=== PATIENT | female | born 1935 | race Caucasian/White ===

== ENCOUNTER 2017-03-31 13:44 | Emergency (ER) | payer MEDICARE, BC ==
[~2017-03-31] VITALS: Ht 162.6 cm; Wt 65.9 kg
[~2017-03-31 13:44] MED LIST: CALC600T25 PO; LEVO75TA3 PO; LOSA50TA PO; OMEP40CA2 PO; VITA100064 PO
[2017-03-31 13:57] VITALS: BP 143/68; PULSE 71; RESP 16; TEMP 98.3; O2SAT 98
[2017-03-31 14:21] LABS: BLOOD, URINE NEG (NEG); GLUCOSE,URINE NEG (NEG); KETONE, URINE NEG (NEG); NITRITE,URINE NEG (NEG)
[2017-03-31] MEDS ORDERED: SODIUM CHLOR 0.9% 1000 ML INJ 1,000 ML IV ONE (14:25)
[2017-03-31 14:30] VITALS: BP 141/79; PULSE 66; RESP 16; O2SAT 96; O2SAT 97
[2017-03-31 14:30] LABS: COMMENT (UR) CULT NOT INDICATED; CULTURE IF INDICATED CULT NOT INDICATED; METHOD OF COLLECTION CLEAN CATCH; SQUAMOUS EPITHELIAL CELL URINE 0-5 /hpf (0-5); URINE COLOR STRAW (YELLW/STRAW)
[2017-03-31] MEDS ORDERED: SODIUM CHLORIDE 0.9% FLUSH 10 ML FLUSH IVF PRN (14:30)
[2017-03-31] MEDS ORDERED: ONDANSETRON HCL 4 MG/2 ML VIAL IVP ONE (14:30)
--- NOTE | 2017-03-31 14:32 | PD ---
HPI Chief Complaint: General Weakness Time Seen by Provider: 14:12 Travel History International Travel<30 days: No Contact w/Intl Traveler<30days: No Traveled to known affect area: No History of Present Illness HPI The patient is a 81-year-old female who presents emergency department for multiple complaints. The patient states she was not feeling well approximately one week ago when she had outpatient laboratory evaluation including UA performed by her primary physician, Dr. Anthony. The patient states she called her primary physician back was diagnosed with UTI, took Cipro for infection, finished the Cipro yesterday. The patient states she never had any dysuria, frequency, or urgency. She did complain of some generalized malaise, abdominal bloating, but denied any urinary symptoms. The patient states she still has the same symptoms, states she feels slightly bloated after eating, as well as generalized malaise. She also complains of numbness and tingling to the toes as well as to the lips bilaterally. The patient does have a history of hyperlipidemia and hypertension, denies any acute changes in her medications except for recent addition of Cipro for limited duration. Patient denies any current chest pain or shortness of breath. The patient was able to eat eggplant last night and was able to eat toast and coffee this morning with mild bloating but no vomiting or diarrhea. The patient's last bowel movement was this morning, described as normal per her report. 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 PROB.) Thyroid Disease: Yes Tetanus Vaccination: < 5 Years Influenza Vaccination: Yes ?: Not Menopausal: Yes Past Surgical History Genitourinary Surgery: Yes (pouch in esophagus repaired february) Oral Surgery: Yes (T & A) Pacemaker: No Thoracic Surgery: Yes (esphageal dilitation,pouch taken out of bottom of esophgus and hernia repai) Tonsillectomy: Yes Other Surgery: Yes (ESOPHAGEAL/LEFT RIB SX) Social History Alcohol Use: Yes (occ wine) Tobacco Use: No (quit 40-50 yrs cigs) Substance Use: No Allergies-Medications (Allergen,Severity, Reaction): Coded Allergies: Talwin (Unverified Allergy, Severe, CONFUSION, 03/31/17) Sulfa (Verified Allergy, Mild, 03/31/17) Benadryl (Verified Allergy, Unknown, Rash, 03/31/17) Reported Meds & Prescriptions Reported Meds & Active Scripts Active Reported Vitamin D (Cholecalciferol) 1,000 Unit Tab 1,000 Units PO DAILY Calcium (Calcium Carbonate) 600 Mg Tab 1 Tab PO BID Omeprazole 40 Mg Cap 40 Mg PO DAILY Losartan (Losartan Potassium) 50 Mg Tab 50 Mg PO DAILY Levothyroxine (Levothyroxine Sodium) 75 Mcg Tab 75 Mcg PO DAILY Review of Systems Except as stated in HPI: all other systems reviewed are Neg General / Constitutional: No: Fever HENT: No: Lightheadedness Respiratory: No: Shortness of Breath Gastrointestinal: No: Nausea, Vomiting, Abdominal Pain Genitourinary: No: Urgency, Frequency, Dysuria Musculoskeletal: Positive: Weakness, No: Edema Neurologic: Positive: Paresthesia, Sensory Disturbance, No: Change in Mentation Physical Exam Narrative GENERAL: Awake, alert, pleasant 81-year-old female who appears her stated age and is in no acute respiratory distress. SKIN: Focused skin assessment warm/dry. HEAD: Atraumatic. Normocephalic. EYES: No injection or drainage. ENT: No nasal bleeding or discharge. Saw dry mucous members. NECK: Trachea midline. No JVD. CARDIOVASCULAR: Regular rate and rhythm. No murmur appreciated. RESPIRATORY: No accessory muscle use. Clear to auscultation. Breath sounds equal bilaterally. GASTROINTESTINAL: Abdomen soft, non-tender, nondistended. No rebound tenderness. No suprapubic tenderness. MUSCULOSKELETAL: No obvious deformities. No clubbing. No cyanosis. No edema. NEUROLOGICAL: Awake and alert. No obvious cranial nerve deficits. Motor grossly within normal limits. Normal speech. Nonfocal. Oriented 4. Follows commands without difficult. PSYCHIATRIC: Appropriate mood and affect; insight and judgment normal. Data Data Last Documented VS Vital Signs Date Time Temp Pulse Resp B/P Pulse Ox O2 Delivery O2 Flow Rate FiO2 03/31/17 15:09 62 16 124/59 66 16 141/79 71 16 119/73 03/31/17 14:30 98 Room Air 03/31/17 13:57 98.3 Orders Urinalysis - C+S If Indicated (03/31/17 14:01) Complete Blood Count With Diff (03/31/17 14:25) Comprehensive Metabolic Panel (03/31/17 14:25) Magnesium (Mg) (03/31/17 14:25) Ckmb (Isoenzyme) Profile (03/31/17 14:25) Troponin I (03/31/17 14:25) Ecg Monitoring (03/31/17 14:25) Iv Access Insert/Monitor (03/31/17 14:25) Oximetry (03/31/17 14:25) Ondansetron Inj (Zofran Inj) (03/31/17 14:30) Sodium Chloride 0.9% Flush (Ns Flush) (03/31/17 14:30) Sodium Chlor 0.9% 1000 Ml Inj (Ns 1000 M (03/31/17 14:25) Orthostatic Vital Signs (03/31/17 14:25) Labs Laboratory Tests Test 03/31/17 03/31/17 14:05 14:48 Urine Collection Type CLEAN CATCH Urine Color STRAW Urine Turbidity CLEAR Urine pH 6.0 Urine Specific Sawyer 1.003 Urine Protein NEG mg/dL Urine Glucose (UA) NEG mg/dL Urine Ketones NEG mg/dL Urine Occult Blood NEG Urine Nitrite NEG Urine Bilirubin NEG Urine Leukocyte Esterase NEG Urine Squamous Epithelial 0-5 /hpf Cells Microscopic Urinalysis Comment CULT NOT INDICATED Urine Collection Time 1405 White Blood Count 6.5 TH/MM3 Red Blood Count 4.47 MIL/MM3 Hemoglobin 13.1 GM/DL Hematocrit 40.5 % Mean Corpuscular Volume 90.6 FL Mean Corpuscular Hemoglobin 29.3 PG Mean Corpuscular Hemoglobin 32.3 % Concent Red Cell Distribution Width 13.2 % Platelet Count 170 TH/MM3 Mean Platelet Volume 9.1 FL Neutrophils (%) (Auto) 72.3 % Lymphocytes (%) (Auto) 15.4 % Monocytes (%) (Auto) 10.4 % Eosinophils (%) (Auto) 1.2 % Basophils (%) (Auto) 0.7 % Neutrophils # (Auto) 4.7 TH/MM3 Lymphocytes # (Auto) 1.0 TH/MM3 Monocytes # (Auto) 0.7 TH/MM3 Eosinophils # (Auto) 0.1 TH/MM3 Basophils # (Auto) 0.0 TH/MM3 CBC Comment DIFF FINAL Differential Comment Sodium Level 142 MEQ/L Potassium Level 4.1 MEQ/L Chloride Level 106 MEQ/L Carbon Dioxide Level 25.5 MEQ/L Anion Gap 11 MEQ/L Blood Urea Nitrogen 15 MG/DL Creatinine 1.10 MG/DL Estimat Glomerular Filtration 48 ML/MIN Rate Random Glucose 116 MG/DL Calcium Level 8.7 MG/DL Magnesium Level 2.3 MG/DL Total Bilirubin 0.2 MG/DL Aspartate Amino Transf 18 U/L (AST/SGOT) Alanine Aminotransferase 19 U/L (ALT/SGPT) Alkaline Phosphatase 59 U/L Total Creatine Kinase 71 U/L Troponin I LESS THAN 0.02 NG/ML Total Protein 6.5 GM/DL Albumin 3.6 GM/DL MDM Medical Decision Making Medical Screen Exam Complete: Yes Emergency Medical Condition: Yes Medical Record Reviewed: Yes Interpretation(s) Laboratory Tests Test 03/31/17 03/31/17 14:05 14:48 Urine Collection Type CLEAN CATCH Urine Color STRAW Urine Turbidity CLEAR Urine pH 6.0 Urine Specific Sawyer 1.003 Urine Protein NEG mg/dL Urine Glucose (UA) NEG mg/dL Urine Ketones NEG mg/dL Urine Occult Blood NEG Urine Nitrite NEG Urine Bilirubin NEG Urine Leukocyte Esterase NEG Urine Squamous Epithelial 0-5 /hpf Cells Microscopic Urinalysis Comment CULT NOT INDICATED Urine Collection Time 1405 White Blood Count 6.5 TH/MM3 Red Blood Count 4.47 MIL/MM3 Hemoglobin 13.1 GM/DL Hematocrit 40.5 % Mean Corpuscular Volume 90.6 FL Mean Corpuscular Hemoglobin 29.3 PG Mean Corpuscular Hemoglobin 32.3 % Concent Red Cell Distribution Width 13.2 % Platelet Count 170 TH/MM3 Mean Platelet Volume 9.1 FL Neutrophils (%) (Auto) 72.3 % Lymphocytes (%) (Auto) 15.4 % Monocytes (%) (Auto) 10.4 % Eosinophils (%) (Auto) 1.2 % Basophils (%) (Auto) 0.7 % Neutrophils # (Auto) 4.7 TH/MM3 Lymphocytes # (Auto) 1.0 TH/MM3 Monocytes # (Auto) 0.7 TH/MM3 Eosinophils # (Auto) 0.1 TH/MM3 Basophils # (Auto) 0.0 TH/MM3 CBC Comment DIFF FINAL Differential Comment Sodium Level 142 MEQ/L Potassium Level 4.1 MEQ/L Chloride Level 106 MEQ/L Carbon Dioxide Level 25.5 MEQ/L Anion Gap 11 MEQ/L Blood Urea Nitrogen 15 MG/DL Creatinine 1.10 MG/DL Estimat Glomerular Filtration 48 ML/MIN Rate Random Glucose 116 MG/DL Calcium Level 8.7 MG/DL Magnesium Level 2.3 MG/DL Total Bilirubin 0.2 MG/DL Aspartate Amino Transf 18 U/L (AST/SGOT) Alanine Aminotransferase 19 U/L (ALT/SGPT) Alkaline Phosphatase 59 U/L Total Creatine Kinase 71 U/L Troponin I LESS THAN 0.02 NG/ML Total Protein 6.5 GM/DL Albumin 3.6 GM/DL Differential Diagnosis Differential diagnosis includes medication side effect, UTI, rhabdomyolysis, dehydration, electrolyte abnormality, hypocalcemia, hypercalcemia, hypokalemia, hyperkalemia, hypothyroidism. Narrative Course IV was established, labs are drawn and sent, and the patient was placed on cardiac telemetry monitoring and continuous pulse oximetry monitoring. UA was sent to lab, was unremarkable. Orthostatic vital signs were obtained, were within normal limits. Creatinine is mildly elevated at 1.1, up from 0.87, may be mild dehydration. The patient was administered IV fluids, CPK is unremarkable, do not suspect rhabdomyolysis from Cipro or her statin therapy. The patient is advised to follow-up with her primary physician on an outpatient basis. Return if symptoms worsen or progress. Diagnosis Primary Impression: Dehydration Additional Impression: Abdominal bloating Patient Instructions: General Instructions Additional Instructions: Follow-up with your primary physician. Return if symptoms worsen or progress. Please provide the patient a copy of her labs at discharge. Med/Other Pt SpecificInfo: No Change to Meds Disposition: 01 DISCHARGE HOME Condition: Stable Jasson Jimenez MD Mar 31, 2017 14:31
[2017-03-31 15:00] VITALS: BP 121/70; PULSE 64; RESP 16; O2SAT 98
[2017-03-31 15:05] LABS: CHLORIDE 106 MEQ/L (98-107); POTASSIUM 4.1 MEQ/L (3.5-5.1); SODIUM (NA) 142 MEQ/L (136-145)
[2017-03-31 15:06] LABS: AUTOMATED NEUTROPHIL # 4.7 TH/MM3 (1.8-7.7); BASOPHIL % 0.7 % (0.0-2.0); EOSINOPHIL # 0.1 TH/MM3 (0-0.4); EOSINOPHIL % 1.2 % (0.0-4.0); HEMATOCRIT 40.5 % (35.0-46.0); HEMO FLAGS DIFF FINAL; LYMPH % 15.4 % (9.0-44.0); MEAN CELL VOLUME 90.6 FL (80.0-100.0); MEAN CORPUSCULAR HEMOGLOBIN 29.3 PG (27.0-34.0); MEAN CORPUSCULAR HGB CONC 32.3 % (32.0-36.0); MONO % 10.4 % (0.0-8.0); NEUT % 72.3 % (16.0-70.0); PLATELET COUNT 170 TH/MM3 (150-450); RED BLOOD COUNT 4.47 MIL/MM3 (4.00-5.30); RED CELL DISTRIBUTION WIDTH 13.2 % (11.6-17.2); WHITE BLOOD COUNT 6.5 TH/MM3 (4.0-11.0)
[2017-03-31 15:09] VITALS: BP_SYST 119; BP_SYST 124; BP_SYST 141; BP_DIAS 59; BP_DIAS 73; BP_DIAS 79; RESP 16
[2017-03-31 15:09] LABS: ANION GAP 11 MEQ/L (5-15); BICARBONATE 25.5 MEQ/L (21.0-32.0); BLOOD UREA NITROGEN 15 MG/DL (7-18); MAGNESIUM 2.3 MG/DL (1.5-2.5)
[2017-03-31 15:12] LABS: ALT (GPT) 19 U/L (10-53); AST (GOT) 18 U/L (15-37); GLOMERULAR FILTRATION RATE 48 ML/MIN (>89)
[2017-03-31 15:14] LABS: TOTAL BILIRUBIN ADULT 0.2 MG/DL (0.2-1.0)
[2017-03-31 15:15] LABS: ALKALINE PHOSPHATASE 59 U/L (45-117)
[2017-03-31 15:19] LABS: CREATINE KINASE 71 U/L (26-192)
[2017-03-31 16:19] VITALS: BP 140/51
== END 2017-03-31 16:21 | disposition home or self-care (01) ==
LOC: PHED 13:44
DX: E86.0 Dehydration (principal); R14.0 Abdominal distension (gaseous); E78.00 Pure hypercholesterolemia, unspecified; I10 Essential (primary) hypertension; E11.9 Type 2 diabetes mellitus without complications; E78.5 Hyperlipidemia, unspecified; Z86.73 Personal history of transient ischemic attack (TIA), and cerebral infarction without residual deficits; I50.9 Heart failure, unspecified
CPT/HCPCS: 80053; 81001; 82550; 83735; 84484; 85025; 96361; 96374; 99284; J2405; J7030